=== PATIENT | female | born 1950 | race Caucasian/White ===

== ENCOUNTER 2017-01-23 12:53 | Day surgery (SDC) | payer OTHER ==
[~2017-01-23] VITALS: Ht 177.8 cm; Wt 86.6 kg
[~2017-01-23 12:53] MED LIST: DESYREL300 MG PO; PRAVACHOL40 MG PO; TYLENOL EXTRA500 MG PO
[2017-01-23 13:33] VITALS: BP 136/88
[2017-01-23 17:40] VITALS: BP 144/67
[2017-01-23 18:10] VITALS: BP 162/88
== END 2017-01-23 18:28 | disposition home or self-care (01) ==
LOC: SDC 12:53
DX: H35.342 Macular cyst, hole, or pseudohole, left eye (principal); F41.8 Other specified anxiety disorders; Z87.891 Personal history of nicotine dependence
CPT/HCPCS: J0330; J0690; J1100; J2250; J2405; J3010; J3300